=== PATIENT | female | born 1985 | race Caucasian/White ===

== ENCOUNTER 2019-12-04 13:38 | Emergency (ER) | payer SELFPAY ==
[2019-12-04 14:13] VITALS: BP 120/80; PULSE 65; TEMP 98.4; BMI 27.0
--- NOTE | 2019-12-04 14:30 | PDOC ---
History of Present Illness - General Chief Complaint: Pain Stated Complaint: B/L EARACHE,LEFT SHOULDER PAIN. Time Seen by Provider: 12/04/19 14:08 History Source: Patient Exam Limitations: No Limitations - History of Present Illness Initial Comments: 12/04/19 14:21 34 yo female no sig pmh presents to the ED for 2 days of bilateral ear pain. Pt states she had URI symptoms for 1 week prior to the ear pain (sore throat and fevers) no longer has fevers or sore throat. Pain is worse on the right than the left, denies ear discharge, mastoid process tenderness, cough, body aches, headaches, CP, SOB, abdominal pain or changes in bowel or bladder habits. Past History - Past Medical History Allergies/Adverse Reactions: Allergies Allergy/AdvReac Type Severity Reaction Status Date / Time No Known Allergies Allergy Verified 12/04/19 14:16 Home Medications: Ambulatory Orders Amoxicillin - [Amoxicillin 500mg Capsule -] 500 mg PO BID 10 Days #20 capsule Tetraciclina Mk 500 Mg 1 tab PO QID 12/04/19 COPD: No - Psycho Social/Smoking Cessation Hx Smoking History: Never smoked Hx Alcohol Use: No Drug/Substance Use Hx: No Substance Use Type: None Review of Systems - Review of Systems Constitutional: No: Chills, Fever HEENTM: Yes: Ear Pain. No: Ear Discharge, Throat Swelling, Difficulty Swallowing Respiratory: No: Cough, Shortness of Breath Cardiac (ROS): No: Chest Pain, Edema ABD/GI: No: Abdominal Distended, Constipated, Diarrhea, Nausea, Vomiting : No: Burning, Dysuria, Frequency, Flank Pain Musculoskeletal: No: Back Pain Neurological: No: Headache, Numbness, Weakness *Physical Exam - Vital Signs Last Vital Signs Temp Pulse Resp BP Pulse Ox 98.4 F 65 18 120/80 100 12/04/19 13:44 12/04/19 13:44 12/04/19 13:44 12/04/19 13:44 12/04/19 13:44 - Physical Exam General Appearance: Yes: Nourished, Appropriately Dressed. No: Apparent Distress HEENT: positive: EOMI, Normal ENT Inspection, TMs Normal, Hearing Grossly Normal. negative: Pharyngeal Erythema, Tonsillar Exudate, Tonsillar Erythema, Rhinorrhea, Sinus Tenderness, TM Bulging, TM Dull, TM Erythema Neck: positive: Supple. negative: Carotid bruit Respiratory/Chest: positive: Lungs Clear, Normal Breath Sounds. negative: Accessory Muscle Use, Crackles, Rales, Rhonchi, Stridor, Wheezing Cardiovascular: positive: Regular Rhythm, Regular Rate, S1, S2. negative: Edema , JVD, Murmur Vascular Pulses: Dorsalis-Pedis (R): 4+, Doralis-Pedis (L): 4+ Gastrointestinal/Abdominal: positive: Flat, Soft. negative: Pulsatile Mass, Protuberent, Distended, Guarding, Rebound, Tenderness Musculoskeletal: negative: CVA Tenderness Extremity: positive: Normal Capillary Refill, Normal Inspection Integumentary: positive: Normal Color, Dry, Warm Neurologic: positive: Fully Oriented, Alert, Normal Mood/Affect, Normal Response Medical Decision Making - Medical Decision Making 12/04/19 14:32 34 yo female no sig pmh presents to the ED for 2 days of bilateral ear pain. Pt states she had URI symptoms for 1 week prior to the ear pain (sore throat and fevers) no longer has fevers or sore throat. Pain is worse on the right than the left, denies ear discharge, mastoid process tenderness, cough, body aches, headaches, CP, SOB, abdominal pain or changes in bowel or bladder habits. vitals WNL Pt has bilateral ear pain, no other URI symptoms Shared decision making with pt, likely viral due to presentation without fevers and bilateral ear pain. Will send antibiotics to pharmacy, pt states unless she does not improve over the next few days, she will not take the antibiotics and will treat herself symptomatically with increased fluids and tylenol/motrin over the counter Discharge - Discharge Information Problems reviewed: Yes Clinical Impression/Diagnosis: Viral infection of both ears Condition: Stable Disposition: HOME - Admission No - Follow up/Referral - Patient Discharge Instructions Patient Printed Discharge Instructions: DI for Viral Upper Respiratory Infection -- Adult, Middle Ear Infection Additional Instructions: Please see the Primary Doctor referred to you within the next 48 hours. Take over the counter Tylenol and Motrin as needed for pain and increase your water intake. Please take over the counter pseudoephedrine. Antibiotics were sent to your Pharmacy, take them as we discussed if your symptoms worsen or do not improve over the next 2 days. Return to the ER for new or concerning symptoms. Thank you - Post Discharge Activity
--- NOTE | 2019-12-04 15:19 | PDOC ---
Attending Attestation - Resident Resident Name: Osei Shine - ED Attending Attestation I have performed the following: I have examined & evaluated the patient, The case was reviewed & discussed with the resident, I agree w/resident's findings & plan, Exceptions are as noted - HPI HPI: 12/04/19 15:36 Agree with resident HPI - Physicial Exam PE: 12/04/19 15:37 GENERAL: Awake, alert, and fully oriented, in no acute distress. Non toxic, in conversation with friend at the bedside EYES: PERRLA, EOMI, sclera anicteric, conjunctiva clear ENT: Mild erythema to R EAC, no bulging TM, normal light reflex. L TM wnl, normal light reflex, normal EAC, hearing grossly normal. No mastoid ttp. No posterior or or pre-auricular LAD. Nares patent, oropharynx clear without exudates. Moist mucosa NECK: Normal ROM, supple, no lymphadenopathy, JVD, or masses LUNGS: Breath sounds equal, clear to auscultation bilaterally. No wheezes, and no crackles HEART: Regular rate and rhythm, normal S1 and S2, no murmurs, rubs or gallops ABDOMEN: Soft, nontender, normoactive bowel sounds. No guarding, no rebound. No masses EXTREMITIES: Normal range of motion, no edema. No cords, erythema, or tenderness NEUROLOGICAL: Normal speech, cranial nerves intact, equal strength and sensation b/l SKIN: Warm, Dry, normal turgor, no rashes or lesions noted. - Medical Decision Making 12/04/19 15:39 34yo F denies sig PMH presents to the ED with b/l ear pain after a URI, mostly likely viral in nature Pt with no fevers, systemic signs of infection No headaches, focal weakness to suggest intracranial extension Recommended to pt sudafed to help dry out fluid Script for abx sent in case she spikes fever or is not feeling better in a few days from ear pain perspective Pt referred to PMD as she does not have one Pt expresses understanding of plan I discussed the physical exam findings, ancillary test results and final diagnoses with the patient. I answered all of the patient's questions. The patient was satisfied with the care received and felt comfortable with the discharge plan and treatment plan. The patient will call their primary care physician within 24 hours to arrange follow-up and will return to the Emergency Department with any new, persistent or worsening symptoms.
== END 2019-12-04 15:31 | disposition home or self-care (01) ==
LOC: FER 13:38
DX: B34.9 Viral infection, unspecified (principal)
CPT/HCPCS: 99282-25